=== PATIENT | male | born 1960 | race Caucasian/White ===

== ENCOUNTER 2019-12-08 10:23 | Emergency (ER) | payer BC, SELFPAY ==
[2019-12-08 10:34] VITALS: BP 158/84; PULSE 79; RESP 20; TEMP 36.4; O2SAT 97
--- NOTE | 2019-12-08 10:54 | ED.GENADULT ---
HPI - General Adult General Chief complaint: Wound/Laceration Stated complaint: Left hand sting swollen Time Seen by Provider: 12/08/19 10:54 Source: patient and RN notes reviewed Mode of arrival: ambulatory Limitations: no limitations History of Present Illness HPI narrative: 59 year old male who presents to [facility] care with complaints of possible abscess to his left dorsal hand ulnar region since or Saturday of last week. Patient states that he was mowing and thinks he got stung by a hornet but is not sure if that was what bit him. He states that his left dorsal hand is very painful and when he squeezed on area white pus came out of area. He states that his dentist had given him in the past week so an antibiotic for his tooth of penicillin VK 500mg and he started the medication yesterday and has taken a total of 3 doses. Told the patient that we normally used either clindamycin, Bactrim or Keflex for skin issues but that clindamycin was hard on the stomach and needed to be taken with food. Patient stated he DIDN't want to take any other antibiotic that he would just continue on the Penicillin VK he has a total of 28 doses. Abscess area 2cm in diameter red, warm and painful with center of wound having some scabbing and whitish tissue with hand swelling noted, no active drainage at this time some red streaking noted up forearm, patient denies any fevers, chills or sweats. MD complaint: wound left dorsal hand Onset (ago): day(s) (4) Location: left and upper extremity (dorsal left hand) Radiation: other (up into left forearm) Severity: severe Severity scale (1-10): >10 Quality: aching, sharp and other (throbbing) Pain Consistency: constant Relieving factors: none Exacerbating factors: movement Treatments prior to arrival: other (tylenol and 3 doses of oral penicillin) Related Data Allergies Allergy/AdvReac Type Severity Reaction Status Date / Time No Known Allergies Allergy Unverified 03/28/16 15:58 Review of Systems Review of Systems: Narrative: CONSTITUTIONAL: Denies fever, chills, or sweats. EYES: Denies visual changes, redness, or discharge. ENT: Denies rhinorrhea, congestion, sore throat, or otalgia. CARDIOVASCULAR: Denies chest pain, palpitations, or edema. RESPIRATORY: Denies cough or dyspnea. GASTROINTESTINAL: Denies abdominal pain, nausea, vomiting, or diarrhea. GENITOURINARY: Denies dysuria or hematuria. SKIN: Positive for warm red raised painful wound on dorsal aspect left hand, MUSCULOSKELETAL: Denies back pain, joint pain, pain to left dorsal hand radiates to forearm NEUROLOGIC: Denies headache, numbness, or weakness. PSYCHIATRIC: Denies anxiety or depression. All systems reviewed & are unremarkable except as noted in HPI and below PMFSH Past Medical History Medical History (Updated 12/08/19 @ 12:15 by Lauren Thomas NP) Arthritis Femur fracture, left History of eye prosthesis Hypertension Surgical History Surgical History (Updated 12/08/19 @ 10:58 by Lauren Thomas NP) Hx of cholecystectomy Social History Social History (Updated 12/08/19 @ 10:58 by Lauren Thomas NP) Smoking status: Former smoker Gender identity (if verbalized by the patient): Male Comments At time of signature, agree with nursing past medical, surgical, social history. There is no relevant family history pertinent to the presenting complaint. Exam Narrative: Exam Narrative: GENERAL: Well-appearing, well-nourished, and in no acute distress. HEAD: Normocephalic, atraumatic. EYES: PERRLA and EOMI. ENT: Nares clear, no rhinorrhea or epistaxis. Mucous membranes moist. NECK: Supple. no lymphadenopathy CHEST: Clear to auscultation. No respiratory distress.SAO2 97% on room air HEART: Regular rate and rhythm. No murmur heard. Normal peripheral pulses. ABDOMEN: Soft, nontender, nondistended, normal active bowel sounds. EXTREMITIES: Normal range of motion. No edema. SKIN: Warm, dry 2cm diameter red raised painful warm absces
[2019-12-08] MEDS: LIDOCAINE HCL 1% LOCAL INJ 20 ML VIAL 2.1 ML IM (11:30)
[2019-12-08] MEDS: cefTRIAXone 1 GM VIAL IM (11:30)
== END 2019-12-08 11:50 | disposition home or self-care (01) ==
PROVIDERS: Emergency Provider Registered Nurse; PCP Family Medicine
DX: L02.512 Cutaneous abscess of left hand (principal); Z87.891 Personal history of nicotine dependence; M19.90 Unspecified osteoarthritis, unspecified site; I10 Essential (primary) hypertension
CPT/HCPCS: 96372; 99213; G0463; J0696

== ENCOUNTER 2023-05-28 13:18 | Emergency (ER) | payer BC, SELFPAY ==
[2023-05-28 13:28] VITALS: BP 146/86; PULSE 81; RESP 20; TEMP 36.6; O2SAT 97
--- NOTE | 2023-05-28 14:08 | ED.URI ---
HPI - URI/Sore Throat General Chief Complaint: Upper Respiratory Infection Stated Complaint: cold symptoms Time Seen by Provider: 05/28/23 14:05 Source: patient, RN notes reviewed and old records reviewed Mode of arrival: ambulatory Limitations: no limitations History of Present Illness HPI Narrative: 63-year-old male presents to [facility] with complaints of cough,sinus pressure, headache, some dizziness,ears ringing for the past week. Patient received antibiotic 05/03/2023 of PenVK and on 05/22/2023 of Zithromycin pack which he finished 2 days ago, reports that he has been taking NyQuil and also cough medication and cough drops. Patient denies any known fevers,chills or sweats. MD elicited complaint: cough, rhinorrhea, nasal congestion and other (headache) Onset (ago): week(s) (1) Pain scale (0-10): 7 Able to tolerate fluids by mouth: Yes Treatments prior to arrival: antibiotics (completed Zpack 2 days ago, ) and other (cough medicationRX, and cough drops) Related Data Home Medications Medication Instructions Recorded Confirmed hydrochlorothiazide 25 mg tablet 25 mg PO DAILY 05/28/23 05/28/23 losartan 25 mg tablet 25 mg PO DAILY 05/28/23 05/28/23 meloxicam 15 mg tablet 15 mg PO DAILY 05/28/23 05/28/23 Allergies Allergy/AdvReac Type Severity Reaction Status Date / Time No Known Allergies Allergy Verified 05/28/23 13:43 Review of Systems Review of Systems: CONSTITUTIONAL: Reports malaise, no chills, sweats, or fever. EYES: Denies visual changes, redness, or discharge. ENT: Reports rhinorrhea, congestion, sinus pain, no otalgia reports ringing, and no sore throat. CARDIOVASCULAR: Denies chest pain, palpitations, or edema. RESPIRATORY: Reports cough.? Denies dyspnea. GASTROINTESTINAL: Denies abdominal pain, nausea, vomiting, diarrhea SKIN: Denies rash or itching. MUSCULOSKELETAL: Denies myalgia. NEUROLOGIC: Reports headache.intermittent dizziness All systems reviewed & are unremarkable except as noted in HPI and below PMFSH Past Medical History Medical History Arthritis Femur fracture, left History of eye prosthesis Hypertension Surgical History Surgical History History of orthopedic surgery left femur Hx of cholecystectomy Social History Social History (Updated 05/30/23 @ 08:37 by Lauren Thomas NP) Smoking status: Former smoker Tobacco type: cigarettes Additional smoking assessment comments: quit 1991 Alcohol intake: unknown Substance use: unknown Gender identity (if verbalized by the patient): Male Comments At time of signature, agree with nursing past medical, surgical, social and family history. There is no relevant family history pertinent to the presenting complaint Exam Narrative: GENERAL: Well-appearing, well-nourished, and in no acute distress. HEAD: Normocephalic EYES: PERRLA, conjunctivae clear ENT: Nares clear, turbinates edematous and erythematous, clear discharge.sinus pressure headache voiced Mucous membranes moist. TM pearly camilo with dull light reflex bilaterally; no tragal tenderness. Oropharynx erythematous without lesions. Tonsils not enlarged and without exudate, no drooling, no hoarseness, no trismus, uvula midline.post nasal drainage NECK: Supple. No lymphadenopathy CHEST: Clear to auscultation, breath sounds equal. No wheezing, rhonchi, rales, or stridor. No respiratory distress, speaks in full sentences.cough,SAO2 97% on room air HEART: Regular rate and rhythm. No murmur heard. SKIN: Warm, dry, no rash. NEURO: Alert and oriented x3. PSYCH: Normal mood and affect Course Course Emergency Course: Patient is aware of diagnosis, understands and agrees to treatment plan.? Anticipatory guidance given.? Patient agrees to follow-up as directed and is aware of reasons to seek care at the emergency department. Po
== END 2023-05-28 14:30 | disposition home or self-care (01) ==
PROVIDERS: Emergency Provider Registered Nurse; PCP Family Medicine
DX: J06.9 Acute upper respiratory infection, unspecified (principal); Z20.822 Contact with and (suspected) exposure to COVID-19; Z87.891 Personal history of nicotine dependence; M19.90 Unspecified osteoarthritis, unspecified site; I10 Essential (primary) hypertension
CPT/HCPCS: 87426; 87804; 99203; G0463

== ENCOUNTER 2023-08-21 13:15 | Emergency (ER) | payer BC, SELFPAY ==
[2023-08-21 13:29] VITALS: BP 150/87; PULSE 80; RESP 18; TEMP 36.6; O2SAT 96
--- NOTE | 2023-08-21 14:14 | ED.GENADULT ---
HPI - General Adult General Chief complaint: Unspecified Stated complaint: Body Aches/Fever Source: patient Mode of arrival: ambulatory Limitations: no limitations History of Present Illness HPI narrative: 63-year-old male presented requesting a note /excuse to verify he was evaluated today. He states he missed court in [place], [place] today, and was advised to get a notarized note to document that he was seen here today. Reports having chills and fatigue yesterday. States he slept all day yesterday. Feels better today. Related Data Home Medications Medication Instructions Recorded Confirmed losartan 25 mg tablet 25 mg PO DAILY 05/28/23 08/21/23 Allergies Allergy/AdvReac Type Severity Reaction Status Date / Time No Known Allergies Allergy Verified 08/21/23 13:32 Review of Systems Review of Systems: CONSTITUTIONAL: Denies body aches, fever, chills, or sweats. EYES: Denies visual changes, redness, or discharge. ENT: Denies rhinorrhea, congestion, sore throat, or otalgia. CARDIOVASCULAR: Denies chest pain, palpitations, or edema. RESPIRATORY: Denies cough or dyspnea. GASTROINTESTINAL: Denies abdominal pain, nausea, vomiting, or diarrhea. GENITOURINARY: Denies dysuria or hematuria. SKIN: Denies rash, itching, or wounds. MUSCULOSKELETAL: Denies back pain, joint pain, or myalgia. NEUROLOGIC: Denies headache All systems reviewed & are unremarkable except as noted in HPI and below PMFSH Past Medical History Medical History Arthritis Femur fracture, left History of eye prosthesis Hypertension Surgical History Surgical History History of orthopedic surgery left femur Hx of cholecystectomy Social History Social History Smoking status: Former smoker Tobacco type: cigarettes Additional smoking assessment comments: quit 1991 Alcohol intake: unknown Substance use: unknown Gender identity (if verbalized by the patient): Male Comments At time of signature, I have reviewed and agree with nursing past medical, surgical, social and family history unless otherwise noted. Please see nursing chart for further information. There is no relevant family history pertinent to the presenting complaint Exam Narrative: GENERAL: Well-appearing, and in no acute distress. EYES: EOMI. No redness or drainage. Conjunctivae normal. ENT: Mucous membranes pink and moist. No rhinorrhea. TMs normal bilaterally. Throat normal. Uvula midline. NECK: Normal AROM. Supple. No lymphadenopathy. CHEST: No respiratory distress. Clear to auscultation. HEART: Regular rate and rhythm. No murmur appreciated. Normal peripheral pulses. ABDOMEN: Soft, nontender, nondistended, normal active bowel sounds. EXTREMITIES: Normal range of motion. No edema. SKIN: Warm, dry, no rash. Capillary refill normal. Normal skin turgor. NEURO: No focal deficits. Alert and oriented x3. Gait steady. PSYCH: Normal affect. Course Course Emergency Course: Patient is aware of diagnosis, understands and agrees to treatment plan. Anticipatory guidance given. Patient agrees to follow-up as directed and is aware of reasons to seek care at the emergency department. Portions of this record may have been created with voice recognition software Level of Care: Express Care Visit Vital Signs Vital signs: Vital Signs Temperature 97.8 F 08/21/23 13:29 Pulse Rate 80 08/21/23 13:29 Respiratory Rate 18 08/21/23 13:29 Blood Pressure 150/87 H 08/21/23 13:29 Pulse Oximetry 96 08/21/23 13:29 Oxygen Delivery Room Air 08/21/23 13:29 Temperature 97.8 F 08/21/23 13:29 Pulse Rate 80 08/21/23 13:29 Respiratory Rate 18 08/21/23 13:29 Blood Pressure 150/87 H 08/21/23 13:29 Pulse Oximetry 96 08/21/23 13:29 Oxygen Delivery Room Air 08/21/23 13:29
== END 2023-08-21 14:20 | disposition home or self-care (01) ==
PROVIDERS: Emergency Provider Nurse Practitioner Family; PCP Family Medicine
DX: Z71.1 Person with feared health complaint in whom no diagnosis is made (principal); M19.90 Unspecified osteoarthritis, unspecified site; I10 Essential (primary) hypertension; Z87.891 Personal history of nicotine dependence; Z97.0 Presence of artificial eye
CPT/HCPCS: 99211; G0463